=== PATIENT | female | born 1980 | race Caucasian/White ===

== ENCOUNTER → 2017-08-15 18:24 | Outpatient (CLI) | payer OTHER, SELFPAY ==
--- NOTE | 2017-08-15 18:26 | US_ITS ---
STUDY: ABDOMINAL ULTRASOUND - RIGHT UPPER QUADRANT REASON FOR VISIT: Female, 37 years old. EPIGASTRIC PAIN WITH NAUSEA AND VOMITING TECHNIQUE: Ultrasound evaluation of the right upper quadrant was performed with real-time and static price-scale imaging. TECHNICAL QUALITY: Adequate. COMPARISON: None. FINDINGS: Liver: The liver measures 16.5 cm. There is normal echogenicity of the liver. The bile ducts are within normal limits. There is hepatic color flow. The direction of portal flow is hepatopetal. There is no demonstrated mass lesion. Gallbladder: Normal distended gallbladder. The gallbladder wall measures 3 mm. There is a negative sonographic Hall's sign. There is no pericholecystic fluid. There are multiple echogenic structures within the gallbladder, consistent with multiple gallstones. Common Bile Duct (C.B.D.): The common bile duct measures 6 mm. Pancreas: Normal size of the head, body of the pancreas. There is normal echogenicity of the pancreas. There is no demonstrated pancreatic mass or cyst. Tail is poorly seen. Right Kidney: Normal size of the right kidney. The right kidney measures 12x5x5 cm. Normal renal cortex. The right cortex measures 1.6 cm. There is no demonstrated renal mass or cyst. There is no right hydronephrosis. US/Abdomen Limited IMPRESSION: There are multiple echogenic structures within the gallbladder, consistent with multiple gallstones. Electronically Signed: Edi Moraes MD at 20:51 EDT , Service support ,
== END ==
PROVIDERS: Family Provider Family Medicine; PCP Family Medicine; Visit Provider Family Medicine
DX: R10.13 Epigastric pain (principal)
CPT/HCPCS: 76705

== ENCOUNTER 2017-09-19 08:47 | Day surgery (SDC) | payer OTHER, SELFPAY ==
[2017-09-12 20:06] LABS: Hematocrit 40.9 % (37-47); Hemoglobin 13.1 g/dl (12.0-15.0); Mean Corpuscular Volume 90.7 fL (81-99); Mean Platelet Vol. 9.3 fl (6.2-12.0); Platelet Count 271 K/mm3 (150-450); RBC Distribution Width CV 14.1 % (11.6-14.6); RBC Distribution Width SD 46.3 fl (35.1-43.9); Red Blood Count 4.51 M/mm3 (4.2-5.4); Scan Indicated on CBC? Y/N NO; White Blood Count 8.5 K/mm3 (4.4-11.0)
[2017-09-12 20:29] LABS: Anion Gap 6 (5-15); BUN 10 mg/dL (7-18); BUN/Creat Ratio 13.3 RATIO (10-20); Calcium,Total 8.6 mg/dL (8.5-10.1); Chloride 107 mmol/L (98-107); Creatinine, Serum 0.75 mg/dL (0.55-1.02); EST Glomerular Filtration Rate 92 mL/min (>60); Est Glom Filt Rate - Afr Amer 112 mL/min (>60); Glucose 93 mg/dL (74-106); Potassium 3.7 mmol/L (3.5-5.1); Sodium Level 137 mmol/L (136-145)
[2017-09-12 20:35] LABS: Pregnancy, Serum, hCG Quali. NEGATIVE Negative (0-9 Nonpreg)
[2017-09-19] VITALS (7 sets, daily range): BP systolic 123–142; BP diastolic 72–89; PULSE 70–104; RESP 16–18; TEMP 36.2–37.1; O2SAT 93–99; BMI 39.9
--- NOTE | 2017-09-19 | GALL_PTH ---
PATIENT: ONESIMO LEON LOC: [facility] [place] U#:[id number] AGE/SX: 37/F ROOM: RE09/19/[address]: Dr. Zachary Mcguire MD : 1980 BED: DIS: 09/19/2017 SPEC #: [id number] RECD: 09/19/17 14:11 STATUS: TEODORA BHUMI #: [id number] KEKE: 09/19/17 00:[address]: Zachary Mcguire DEPT: SURGICAL PATHOLOGY RECD BY: Jose Law ENTERED: 09/19/17 14:11 SP TYPE: DIMAS GUTIERREZ DR: MD Dr. Gilbert Watt MD Tissues: Gallbladder, NOS Procedures: Surgery Specimen Level III HEADER OPERATION: Laparoscopic cholecystectomy with intraoperative cholangiograph PRE-OP DIAGNOSIS: Chronic cholecystitis with calculus TISSUE SUBMITTED: Gallbladder MICROSCOPIC DIAGNOSIS Gallbladder: Chronic cholecystitis, cholelithiasis and cholesterolosis. SJ:autumn 09/20/17 MICROSCOPIC DESCRIPTION Slides are reviewed. GROSS DESCRIPTION Received is one container labeled with the patient's name and designated gallbladder. The specimen consists of a gallbladder measuring 8 cm in length and 3 cm in diameter. The external surface is pink-barker, smooth and glistening for the most part. Focally it is granular, hemorrhagic and contains cautery artifact. The gallbladder contains green-yellow mucoid bile and multiple mulberry stones and stone fragments, yellowish in color, and measuring in aggregate 5 x 4 x 1 cm and 0.1 to 1 cm in greatest dimension. Some of the stones are present in the cystic duct. The mucosa is bile-stained and without any mass lesions. The gallbladder wall measures up to 0.2 cm in thickness. The mucosa also shows several yellowish streaks consistent with cholesterolosis. Barrel Cutter sections from the gallbladder and the cystic duct are submitted in one cassette. / CHAVEZ:uatumn 09/19/17 TC:3 CPT: 14809
[2017-09-19] MEDS: Cefazolin 2 GM in 0.9% Normal Saline 100 ML IV (10:27)
--- NOTE | 2017-09-19 10:28 | PCM.DC.GS ---
Discharge Diet: Light diet - advance as tolerated - if you have questions about your diet instructions, please talk to you doctor. Discharge Activity: May Not Drive - for 1 week or while taking narcotic pain medicine. May shower in (days): 1 Lifting Restrictions: 10 pounds Call your doctor if your incision/area has: Continuous Slow Oozing, Sudden Increased Bleeding, Increased Pain/ Swelling, Increased Redness, Foul Smelling Discharge Call your doctor if you observe: Fever of 101 or Higher Suture Line Care: Avoid Pulling/Pushing, Avoid Pinching/Bending Additional Dressing/Incision Instructions:: Change or remove dressing in 4 days. Leave steri-strips in place for 1 week. Allergies/Adverse Reactions: Allergies No Known Allergies Allergy (Verified 09/12/17 09:13) Medications to take at Discharge levothyroxine 50 mcg capsule 50 mcg PO QDAY 09/05/17 venlafaxine ER 75 mg capsule,extended release 24 hr 150 mg PO DAILY cap 09/05/17 Hydrocodone Bitart/Apap 5-325 [[place] 5MG-325MG] 1 tablet PO Q6H PRN PRN 3 Days #10 tablet 09/19/17 The following prescriptions were given: Hydrocodone Bitart/Apap 5-325 [[place] 5MG-325MG] 1 tablet PO Q6H PRN PRN 3 Days #10 tablet PRN Reason: Pain Primary Care Physician: Gilbert Sol [Primary Care Provider] - Please Follow Up With: Zachary Mcguire MD - [phone] When: Call to make an appointment to be seen in about 10 days.
--- NOTE | 2017-09-19 10:48 | RAD_ITS ---
STUDY: INTRAOPERATIVE CHOLANGIOGRAM. REASON FOR EXAM: Female, 37 years old. Laparoscopic cholecystectomy. FLUOROSCOPY TIME (if supplied): (34.6 seconds) minutes/seconds TECHNIQUE: An intraoperative cholangiogram was performed by the surgeon. Imaging was submitted. COMPARISON: None. FINDINGS: The visualized intrahepatic biliary ducts are unremarkable. The common bile duct is unremarkable. No intraluminal filling defect is seen. There is free flow of contrast into the duodenum. RAD/Cholangiogram/ O R,Initial IMPRESSION: Unremarkable intraoperative cholangiogram. Electronically Signed: Jaison Alejandro MD at 13:49 EDT Tel [phone], Service support ,
--- NOTE | 2017-09-19 11:51 | PCM.OPRPT ---
Problem List (1) Chronic cholecystitis with calculus Status: Acute Report of Operation Date of Procedure: 09/19/17 Pre-Operative Diagnosis: Chronic cholecystitis cholelithiasis Post-Operative Diagnosis: Same Surgery/Procedure Performed:: Laparoscopic cholecystectomy with cholangiography Description of Surgical Findings:: Timeout informed consent was obtained. 37-year-old female taken out from. She was placed supine on the table. She underwent general endotracheal intubation anesthesia. Ancef 2 g given intravenously. The abdomen was sterilely prepped and draped. 0.5% Marcaine was used as a local anesthetic. A total of 30 cc was used. Skin sites were pre-anesthetized. A vertical infraumbilical incision was created. Holding sutures of 0 Vicryl placed. Saline drop test performed. The abdomen was insufflated with CO2 to to a pressure of 12 mmHg pressure. Luz Elena trocar inserted 10 laps inserted no evidence any trocar injuries under conization five-minute ports were placed in the epigastric mid abdomen right upper quadrant. The gallbladder had omentum that was completely obstructing view to it. This omentum had to be taken down off the gallbladder with a combination of sharp and blunt dissection. Electrocautery was used where indicated. Hemoclips were used for indicated. This allowed for elevation of the liver. Then tedious dissection was performed the infundibular area. The patient's body habitus made it difficult to gain access to the left side of the gallbladder I stayed well up on the gallbladder incised the peritoneum used Hem-o-graciela clips and electrocautery for hemostasis finally elected to do a modified dome down approach. About the mid gallbladder was able to dissect around posteriorly and open up a window superior to the portal area. I could then work my way inferiorly. The cystic artery was identified and was clipped proximally and distally prior to the incident skin yet. I could then clearly identify the cystic duct. Hemoclip was placed on the sixth duct incision made in the cystic duct through a 14-gauge Angiocath the cholangiogram catheter was inserted fluoroscopically controlled plan transfer obtained. The arrangement cath was not well seated in the cystic duct so there was some extravasation at that site however there was good filling of the common bile duct that was hanging up at the ampulla but it finally went through I did not see any filling defects. Client Dane catheter was removed and 2 Hem-o-graciela clips were placed on the cystic duct stump prior to transecting it. The gallbladder was then tediously dissected free from the liver bed complete hemostasis was intact there was absolutely no stones spillage. The gallbladder was placed in retrieval bag the right upper quadrant again was irrigated and aspirated to further assist with hemostasis a piece of fibrillar was placed in the liver bed. Hemostasis was nicely intact. The gallbladder exited the umbilicus with slight fascial enlargement. Then the fascial defect the umbilicus approximated with a grainy needle in a wrvpgg-jx-ehcgz suture of 0 Vicryl. The abdomen was allowed to deflate of the CO2. Skin edges approximated up to 4 Monocryl subdermal stitches. Steri-Strips Telfa and OpSite dressings applied. Sponge and instrument and needle counts were reported to the surgeon be correct. Blood loss was minimal. Specimens none. Drains none. Blood loss minimal. Zachary Mcguire M.D., F.A.C.S. Type of Anesthesia:: General Anesthesiologist: Rachell Rowe
[2017-09-19] MEDS: Bupivacaine Mpf 0.5% 30 ML VIAL (11:53)
== END 2017-09-19 15:19 | disposition home or self-care (01) ==
LOC: SDC 08:48 → AC 08:48
PROVIDERS: Family Provider Family Medicine; PCP Family Medicine; Visit Provider Surgery
PROC: (CPT 47610; principal; 2017-09-19 10:45)
DX: K80.10 Calculus of gallbladder with chronic cholecystitis without obstruction (principal); E03.9 Hypothyroidism, unspecified; J45.909 Unspecified asthma, uncomplicated; F32.9 Major depressive disorder, single episode, unspecified; Z79.899 Other long term (current) drug therapy
CPT/HCPCS: 47563; 36415; 74300; 76000; 80048; 84443; 84703; 85027; 88304; J7120; J2405

== ENCOUNTER → 2017-11-02 13:16 | Outpatient (CLI) | payer OTHER, SELFPAY ==
[2017-11-02 14:04] LABS: Mucous, Urine 0 SEEN /hpf (<or=2+); Red Blood Cells-Urine 0 SEEN /hpf (0-5)
[2017-11-02 14:58] LABS: Color, Urine Yellow (Yellow); Glucose, Dipstick Normal (Normal); Ketone-Dipstick Negative (Negative); Leukocyte Esterase-Dipstick 25 /ul (Negative); Nitrite-Dipstick Negative (Negative); Occult Blood-Urine 25 /ul (Negative); Protein-Dipstick Negative (Negative); Urine Bilirubin Dipstick Negative (Negative); Urine Clarity Clear (Clear); Urine Urobilinogen Normal (Normal)
[2017-11-02 15:25] LABS: Bacteria RARE /hpf (None Seen); Squamous Epithelial Cells - UA 0-5 SEEN /hpf (5-10); White Blood Cells 0-5 SEEN /hpf (0-5)
== END ==
PROVIDERS: Family Provider Family Medicine; PCP Family Medicine; Visit Provider Physician Assistant Surgical
DX: R10.9 Unspecified abdominal pain (principal)
CPT/HCPCS: 81001; 87086

== ENCOUNTER → 2017-11-27 18:44 | Outpatient (CLI) | payer OTHER, SELFPAY | PROVIDERS: Family Provider Family Medicine; PCP Family Medicine; Visit Provider Urology | DX: R31.9 Hematuria, unspecified (principal); R10.9 Unspecified abdominal pain | CPT/HCPCS: 74176 ==

== ENCOUNTER → 2018-11-11 18:03 | Outpatient (CLI) | payer OTHER, SELFPAY ==
[2017-11-02 06:59] VITALS: BMI 39.8
[2018-11-11 19:04] LABS: Thyroid Stim Hormone (TSH) 2.06 uIU/mL (0.358-3.74)
== END ==
PROVIDERS: Family Provider Family Medicine; PCP Family Medicine; Visit Provider Family Medicine
DX: E03.4 Atrophy of thyroid (acquired) (principal)
CPT/HCPCS: 36415; 84443

== ENCOUNTER → 2019-12-24 11:31 | Outpatient (CLI) | payer OTHER, SELFPAY ==
[2019-12-24 13:27] LABS: Progesterone Level 0.46 ng/mL (See Comment)
[2019-12-24 13:31] LABS: hCG Titer Quant., Serum < 1 mIU/mL (1-3)
[2019-12-24 13:32] LABS: Thyroid Stim Hormone (TSH) 2.59 uIU/mL (0.358-3.74)
== END ==
PROVIDERS: PCP Family Medicine; Referring Provider Obstetrics & Gynecology; Visit Provider Obstetrics & Gynecology
DX: Z30.430 Encounter for insertion of intrauterine contraceptive device (principal); E03.4 Atrophy of thyroid (acquired)
CPT/HCPCS: 36415; 84144; 84443; 84702

== ENCOUNTER → 2020-12-31 11:06 | Outpatient (CLI) | payer OTHER, SELFPAY ==
[2020-12-31 11:35] LABS: Absolute Lymphocyte Count 1.92 X10^3/uL (0.83-4.51); Basophil# 0.05 X10^3/uL; Basophil% 0.6 % (0-1); Eosinophil# 0.25 X10^3/uL; Eosinophils% 2.8 % (0-5); Hemoglobin 12.9 g/dL (12.0-15.0); Lymphocyte # 1.92 X10^3/ul (0.83-4.51); Lymphocyte % 21.6 % (19-41); Mean Corp Hgb Conc 33.1 g/dL (32-36); Mean Corpuscular Hgb 29.4 pg (27.0-32.0); Mean Corpuscular Volume 88.8 fL (81-99); Mean Platelet Vol. 9.1 fl (6.2-12.0); Monocyte% 6.7 % (0-10); NRBC Flagged by Analyzer 0 % (0-5); Neutrophil # 6.04 X10^3/uL (2.7-7.7); Platelet Count 308 K/mm3 (150-450); RBC Distribution Width CV 13.8 % (11.6-14.6); RBC Distribution Width SD 45.4 fl (35.1-43.9); Red Blood Count 4.39 M/mm3 (4.2-5.4); White Blood Count 8.9 K/mm3 (4.4-11.0)
[2020-12-31 12:13] LABS: ALB/GLOB Ratio 0.8 RATIO (0.9-2.4); AST(SGOT) 12 U/L (15-37); Alanine Aminotransfer ALT/SGPT 17 U/L (13-56); Albumin, Serum 3.4 g/dL (3.2-5.0); Alkaline Phosphatase 102 U/L (45-117); Anion Gap 5 (5-15); BUN 12 mg/dL (7-18); BUN/Creat Ratio 18.4 RATIO (10-20); Calcium,Total 8.2 mg/dL (8.5-10.1); Chloride 109 mmol/L (98-107); Cholesterol 165 mg/dL (200); Creatinine, Serum 0.65 mg/dL (0.55-1.02); EST Glomerular Filtration Rate 106 mL/min (>60); Est Glom Filt Rate - Afr Amer 129 mL/min (>60); Globulin 4.1 g/dL (2.2-4.2); Glucose 99 mg/dL (74-106); High Density Lipoprotein 42 mg/dL; Protein, Total 7.5 g/dL (6.4-8.2); Sodium Level 139 mmol/L (136-145); Thyroid Stim Hormone (TSH) 1.87 uIU/mL (0.358-3.74); Triglycerides 73 mg/dL; Very Low Density Lipoprotein 15 mg/dL (5-40)
== END ==
PROVIDERS: PCP Family Medicine; Referring Provider Family Medicine; Visit Provider Family Medicine
DX: E03.4 Atrophy of thyroid (acquired) (principal)
CPT/HCPCS: 36415; 80053; 80061; 84443; 85025

== ENCOUNTER 2021-05-10 13:29 | Outpatient (CLI) | payer OTHER, SELFPAY ==
--- NOTE | 2021-05-10 13:32 | BI_ITS ---
MAMMOGRAPHY - BILATERAL SCREENING REASON FOR EXAM: Female, 41 years old. Routine annual screening examination. PERTINENT HISTORY: Grandmothers with breast cancer. TECHNIQUE: Digital bilateral breast sienna (3D mammographic acquisition) in the CC and MLO projections. 2-D mediolateral oblique (MLO) and craniocaudad (CC) views of both breasts were obtained. CAD: Full Field Digital Mammography with Computer Added Detection was performed. COMPARISON: None. Baseline examination. FINDINGS: Breast Composition: The breasts are heterogeneously dense, which may obscure small masses. There are no dominant masses or suspicious calcifications. Benign-appearing right axillary lymph nodes. No other significant abnormalities are identified. BI/SCRN MAMM (CAD)W/SIENNA BILAT IMPRESSION: Negative screening mammogram. Yearly followup mammogram recommended. (A) ASSESSMENT CATEGORY: BIRADS Category 2: Benign. A letter regarding these results will be sent to the patient by the facility within 30 days. Approximately 10% of breast cancers are not detected by mammography. A normal mammogram should not delay biopsy of a clinically suspicious abnormality. [id number] Electronically Signed: Jiason Alejandro MD at 14:23 EST ,
== END 2021-05-10 23:59 | disposition home or self-care (01) ==
LOC: OPBI 13:30
PROVIDERS: PCP Family Medicine; Referring Provider Obstetrics & Gynecology; Visit Provider Obstetrics & Gynecology
DX: Z12.31 Encounter for screening mammogram for malignant neoplasm of breast (principal); Z80.3 Family history of malignant neoplasm of breast
CPT/HCPCS: 77063; 77067

== ENCOUNTER → 2021-12-09 | Outpatient (CLI) | payer OTHER, SELFPAY ==
[2021-12-09 08:49] LABS: Absolute Neutrophil Count 6.7 X10^3/uL (2.0-7.7); Basophil# 0.04 X10^3/uL; Basophil% 0.4 % (0-1); Eosinophil# 0.32 X10^3/uL; Eosinophils% 3.2 % (0-5); Hemoglobin 12.9 g/dL (12.0-15.0); Lymphocyte % 23.1 % (19-41); Mean Corp Hgb Conc 31.5 g/dL (32-36); Mean Corpuscular Hgb 29.3 pg (27.0-32.0); Mean Corpuscular Volume 93.2 fL (81-99); Mean Platelet Vol. 9.5 fl (6.2-12.0); Monocyte# 0.62 X10^3/uL; Monocyte% 6.2 % (0-10); NRBC Flagged by Analyzer 0 % (0-5); Neutrophil # 6.66 X10^3/uL (2.7-7.7); Neutrophil % 66.8 % (47-70); Platelet Count 310 K/mm3 (150-450); RBC Distribution Width CV 13.7 % (11.6-14.6)
[2021-12-09 09:42] LABS: ALB/GLOB Ratio 0.9 RATIO (0.9-2.4); AST(SGOT) 13 U/L (15-37); Alanine Aminotransfer ALT/SGPT 17 U/L (13-56); Albumin, Serum 3.4 g/dL (3.2-5.0); Alkaline Phosphatase 98 U/L (45-117); Anion Gap 8 (5-15); BUN 17 mg/dL (7-18); BUN/Creat Ratio 21.5 RATIO (10-20); Calcium,Total 8.4 mg/dL (8.5-10.1); Chloride 106 mmol/L (98-107); Cholesterol 171 mg/dL (200); Creatinine, Serum 0.79 mg/dL (0.55-1.02); EST Glomerular Filtration Rate 85 mL/min (>60); Est Glom Filt Rate - Afr Amer 103 mL/min (>60); Globulin 3.9 g/dL (2.2-4.2); Glucose 107 mg/dL (74-106); High Density Lipoprotein 41 mg/dL; Potassium 3.5 mmol/L (3.5-5.1); Protein, Total 7.3 g/dL (6.4-8.2); Sodium Level 140 mmol/L (136-145); Thyroid Stim Hormone (TSH) 4.27 uIU/mL (0.358-3.74); Triglycerides 103 mg/dL; Very Low Density Lipoprotein 21 mg/dL (5-40)
== END | disposition home or self-care (01) ==
LOC: LAB 07:53
PROVIDERS: PCP Family Medicine; Referring Provider Family Medicine; Visit Provider Family Medicine
DX: Z00.00 Encounter for general adult medical examination without abnormal findings (principal)
CPT/HCPCS: 36415; 80053; 80061; 84443; 85025

== ENCOUNTER → 2022-02-14 | Outpatient (CLI) | payer OTHER, SELFPAY ==
[2022-02-14 17:11] LABS: Thyroid Stim Hormone (TSH) 2.18 uIU/mL (0.358-3.74)
== END | disposition home or self-care (01) ==
LOC: LAB 15:46
PROVIDERS: PCP Family Medicine; Visit Provider Family Medicine
DX: E03.4 Atrophy of thyroid (acquired) (principal)
CPT/HCPCS: 36415; 84443

== ENCOUNTER → 2023-04-17 | Outpatient (CLI) | payer OTHER, SELFPAY ==
--- NOTE | 2023-04-17 17:24 | US_ITS ---
STUDY: THYROID ULTRASOUND REASON FOR EXAM: Female, 43 years old. Palpably enlarged thyroid TECHNIQUE: Ultrasound evaluation of the thyroid was performed with real-time and static price-scale imaging. COMPARISON: None. FINDINGS: RIGHT LOBE: The right lobe of the thyroid gland measures 5.6 x 2.1 x 2.2 cm. There is a heterogeneous echotexture. There is a solid well-defined hypoechoic 1.6 x 1.2 x 0.7 cm nodule This nodule is solid or almost completely solid, hypoechoic, grvdz-dahp-jfgz, smoothly marginated and contains no echogenic foci. TI-RADS points: 4. TI-RADS category: TR4. This nodule is moderately suspicious. Recommend FNA evaluation. LEFT LOBE: The left lobe of the thyroid gland measures 5.0 x 1.9 x 2.2 cm. There is a heterogeneous echotexture. There are no demonstrated solid, cystic or complex lesions. ISTHMUS: The isthmus measures 4 mm. The regional lymph nodes are normal. US/Thyroid IMPRESSION: Enlarged heterogeneous thyroid gland with suspicious 1.6 cm hypoechoic nodule in the left thyroid lobe. Categorization and follow-up as listed above Electronically Signed: Zhen Simmons MD at 18:13 EST ,
--- OUTSIDE RECORDS SUMMARY | 2023-04-17 17:24 | XMS RPT_ITS | CCD ---
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 Name Role Phone Noris Davidson DC Unavailable Dionne Matamoros Unavailable Unavailable Noris Davidson DC Unavailable Medications Completed/Discontinued Medications Medication Drug Class(es) Dates Sig (Normalized) Sig (Original) levothyroxine sodium 0.05 mg oral tablet (12 sources) l-Thyroxine Start: 10-31-2016 LEVO-T 50 MCG TABS LEVOTHYROXINE SODIUM [id number] Noris Davidson DC Problems Active Problems Problem Classification Problem Date Documented Da te Episodic/Chronic Asthma (12 sources) Asthma; Translations: [Unspecified asthma, uncomplicated] Onset: 10-31-2016 10-31-2016 Chronic Conditions associated with dizziness or vertigo (12 sources) Meniere's disease; Translations: [Meniere's disease, unspecified ear] Onset: 10-31-2016 10-31-2016 Chronic Other screening for suspected conditions (not mental disorders or infectious disease) (1 source) No current problems or disability 10-31-2016 Thyroid disorders (12 sources) Hypothyroidism; Translations: [Hypothyroidism, unspecified] Onset: 10-31-2016 10-31-2016 Chronic Past or Other Problems Problem Classification Problem Date Documented Da te Episodic/Chronic Other bone disease and musculoskeletal deformities (20 sources) Segmental and somatic dysfunction; Translations: [Segmental and somatic dysfunction of lumbar region] Onset: 10-31-2016 10-31-2016 Episodic Urinary tract infections (12 sources) Recurrent urinary tract infection; Translations: [Urinary tract infection, site not specified] Onset: 10-31-2016 10-31-2016 Episodic Results Test Name Value Interpretation Reference Range Facil ity Vital Signs Date Time Vital Sign Value Performing Clinician Faci lity 10-31-2016 13:47-1443 BMI (Body Mass Index) 35.73 kg/m2 Noris Dossi DC [facility] Work Phone: 10-31-2016 13:47040 Height 172.72 cm Noris Dossi DC [facility] Work Phone: 10-31-2016 [phone] Pulse (Heart Rate) 82 /min Noris Dossi DC [facility] Work Phone: 10-31-2016 13:47-040 Weight 106.6 kg Noris Dossi DC [facility] Work Phone: Procedures Date Procedure Procedure Detail Performing Clinician Start: 01-18-2017 End: 01-18-2017 Appl modality 1/> areas elec stimj unattended Noris B Dossi DC Work Phone: Start: 01-18-2017 End: 01-18-2017 Appl modality 1/> areas traction mechanical Noris B Dossi DC Work Phone: Start: 01-18-2017 End: 01-18-2017 Chiropractic manipulative tx spinal 3-4 regions Noris B Dossi DC Work Phone: Start: 11-22-2016 End: 11-22-2016 Appl modality 1/> areas traction mechanical Noris B Dossi DC Work Phone: Start: 11-22-2016 End: 11-22-2016 Chiropractic manipulative tx spinal 3-4 regions Noris B Dossi DC Work Phone: Start: 11-22-2016 End: 11-22-2016 Chiropractic manipulation Noris B Dossi DC Work Phone: Start: 11-22-2016 End: 11-22-2016 Mechanical traction therapy Noris B Dossi DC Work Phone: Start: 11-15-2016 End: 11-15-2016 Appl modality 1/> areas elec stimj unattended Noris B Dossi DC Work Phone: Start: 11-15-2016 End: 11-15-2016 Appl modality 1/> areas traction mechanical Noris B Dossi DC Work Phone: Start: 11-15-2016 End: 11-15-2016 Chiropractic manipulative tx spinal 3-4 regions Noris B Dossi DC Work Phone: Start: 11-15-2016 End: 11-15-2016 Chiropractic manipulation Noris B Dossi DC Work Phone: Start: 11-15-2016 End: 11-15-2016 Electric stimulation therapy Noris B Dossi DC Work Phone: Start: 11-15-2016 End: 11-15-2016 Mechanical traction therapy Noris B Dossi DC Work Phone: Start: 11-09-2016 End: 11-09-2016 Appl modality 1/> areas traction mechanical Noris B Dossi DC Work Phone: Start: 11-09-2016 End: 11-09-2016 Chiropractic manipulative tx spinal 3-4 regions Noris B Dossi DC Work Phone: Start: 11-09-2016 End: 11-09-2016 Chiropractic manipulation Noris B Dossi DC Work Phone: Start: 11-09-2016 End: 11-09-2016 Mechanical traction therapy Noris B Dossi DC Work Phone: Start: 11-07-2016 End: 11-07-2016 Appl modality 1/> areas elec stimj unattended Noris B Dossi DC Work Phone: Start: 11-07-2016 End: 11-07-2016 Appl modality 1/> areas traction mechanical Noris B Dossi DC Work Phone: Start: 11-07-2016 End: 11-07-2016 Chiropractic manipulative tx spinal 3-4 regions Noris B Dossi DC Work Phone: Start: 11-07-2016 End: 11-07-2016 Electric stimulation therapy Noris B Dossi DC Work Phone: Start: 11-07-2016 End: 11-07-2016 Mechanical traction therapy Noris B Dossi DC Work Phone: Start: 11-06-2016 End: 11-07-2016 Chiropractic manipulation Noris B Dossi DC Work Phone: Start: 11-06-2016 End: 11-06-2016 Chiropractic manipulation Noris B Dossi DC Work Phone: Start: 11-01-2016 End: 11-02-2016 Appl modality 1/> areas elec stimj unattended Noris B Dossi DC Work Phone: Start: 11-01-2016 End: 11-02-2016 Appl modality 1/> areas traction mechanical Noris B Dossi DC Work Phone: Start: 11-01-2016 End: 11-02-2016 Chiropractic manipulative tx spinal 3-4 regions Noris B Dossi DC Work Phone: Start: 11-01-2016 End: 11-02-2016 Chiropractic manipulation Noris B Dossi DC Work Phone: Start: 11-01-2016 End: 11-02-2016 Mechanical traction therapy Noris B Dossi DC Work Phone: Start: 10-31-2016 End: 11-02-2016 Electric stimulation therapy Noris B Dossi DC Work Phone: Start: 10-31-2016 End: 10-31-2016 Radex spine cervical 2 or 3 views Noris B Dossi DC Work Phone: Start: 10-31-2016 End: 10-31-2016 Dietary management education, guidance, and counseling Noris Dossi DC Start: 10-31-2016 End: 10-31-2016 Electric stimulation therapy Noris B Dossi DC Work Phone: Start: 10-31-2016 End: 10-31-2016 X-ray exam of neck spine Noris Jenny Whitesi D C Work Phone: Plan of Treatment Date Care Activity Detail Author Start: 01-18-2017 End: 01-18-2017 Appointment Appointment [facility] Work Phone: Start: 11-22-2016 End: 11-22-2016 Follow up Appt 1x/week Follow up Appt 1x/week [facility] Work Phone: Start: 11-22-2016 End: 11-22-2016 Appointment Appointment [facility] Work Phone: Start: 11-22-2016 End: 11-22-2016 Follow up Appt 1x/week Follow up Appt 1x/week [facility] Work Phone: Start: 11-21-2016 End: 11-21-2016 Appointment Appointment [facility] Work Phone: Start: 11-15-2016 End: 11-15-2016 Follow up Appt 1x/week Follow up Appt 1x/week [facility] Work Phone: Start: 11-15-2016 End: 11-15-2016 Appointment Appointment [facility] Work Phone: Start: 11-15-2016 End: 11-15-2016 Follow up Appt 1x/week Follow up Appt 1x/week [facility] Work Phone: Start: 11-09-2016 End: 11-09-2016 Appointment Appointment [facility] Work Phone: Start: 11-09-2016 End: 11-09-2016 Follow up Appt 3x/week Follow up Appt 3x/week [facility] Work Phone: Start: 11-09-2016 End: 11-09-2016 Follow up Appt 3x/week Follow up Appt 3x/week [facility] Work Phone: Start: 11-07-2016 End: 11-07-2016 Follow up Appt 3x/week Follow up Appt 3x/week [facility] Work Phone: Start: 11-07-2016 End: 11-07-2016 Appointment Appointment [facility] Work Phone: Start: 11-06-2016 End: 11-07-2016 Follow up Appt 3x/week Follow up Appt 3x/week [facility] Work Phone: Start: 11-06-2016 End: 11-06-2016 Appointment Appointment [facility] Work Phone: Start: 11-06-2016 End: 11-06-2016 Follow up Appt 3x/week Follow up Appt 3x/week [facility] Work Phone: Start: 11-01-2016 End: 11-02-2016 Follow up Appt 3x/week Follow up Appt 3x/week [facility] Work Phone: Start: 11-01-2016 End: 11-01-2016 Appointment Appointment [facility] Work Phone: Start: 11-01-2016 End: 11-02-2016 Follow up Appt 3x/week Follow up Appt 3x/week [facility] Work Phone: Start: 10-31-2016 End: 10-31-2016 Appointment Appointment [facility] Work Phone: Additional Source Comments FOR RECORDS PERTAINING TO PATIENTS WHO ARE OR HAVE BEEN ENROLLED IN A CHEMICAL DEPENDENCY/SUBSTANCEABUSE PROGRAM, SOME INFORMATION MAY BE OMITTED. This clinical summary was aggregated from multiple sources. Caution should be exercised in using it in the provision of clinical care. This summary normalizes information from multiple sources, and as a consequence, information in this document may materially change the coding, format and clinical context of patient data. In addition, data may be omitted in some cases. CLINICAL DECISIONS SHOULD BE BASED ON THE PRIMARY CLINICAL RECORDS. [employer] [facility]. provides no warranty or guarantee of the accuracy or completeness of information in this document.
== END | disposition home or self-care (01) ==
LOC: US 17:21
PROVIDERS: PCP Internal Medicine; Referring Provider Internal Medicine; Visit Provider Internal Medicine
DX: E04.9 Nontoxic goiter, unspecified (principal)
CPT/HCPCS: 76536

== ENCOUNTER → 2023-04-18 | Outpatient (CLI) | payer OTHER, SELFPAY ==
[2023-04-18 17:03] LABS: Absolute Lymphocyte Count 1.88 X10^3/uL (0.83-4.51); Basophil# 0.04 X10^3/uL; Basophil% 0.5 % (0-1); Eosinophil# 0.28 X10^3/uL; Eosinophils% 3.6 % (0-5); Hematocrit 39.5 % (37-47); Hemoglobin 13.1 g/dL (12.0-15.0); Lymphocyte # 1.88 X10^3/ul (0.83-4.51); Lymphocyte % 24.2 % (19-41); Mean Corp Hgb Conc 33.2 g/dL (32-36); Mean Corpuscular Hgb 29.8 pg (27.0-32.0); Monocyte# 0.54 X10^3/uL; Monocyte% 6.9 % (0-10); NRBC Flagged by Analyzer 0 % (0-5); Neutrophil # 5.02 X10^3/uL (2.7-7.7); Neutrophil % 64.5 % (47-70); Platelet Count 321 K/mm3 (150-450); RBC Distribution Width CV 13.4 % (11.6-14.6); RBC Distribution Width SD 44.4 fl (35.1-43.9); Red Blood Count 4.39 M/mm3 (4.2-5.4); White Blood Count 7.8 K/mm3 (4.4-11.0)
--- OUTSIDE RECORDS SUMMARY | 2023-04-18 17:31 | XMS RPT_ITS | CCD ---
Author Name Unknown Address [address] [place] [address] Organization [facility] Care Team Providers Care Aviation Metalsmith Name Role Phone Noris Davidson DC Unavailable Dionne Matamoros Unavailable Unavailable Noris Davidson DC Unavailable Medications Completed/Discontinued Medications Medication Drug Class(es) Dates Sig (Normalized) Sig (Original) levothyroxine sodium 0.05 mg oral tablet (12 sources) l-Thyroxine Start: 10-31-2016 LEVO-T 50 MCG TABS LEVOTHYROXINE SODIUM [id number] Noris Davidson DC Problems Active Problems Problem [...] Sign Value Performing Clinician Faci lity 10-31-2016 13:47-0223 BMI (Body Mass Index) 35.73 kg/m2 Noris Dossi DC [facility] Work Phone: 10-31-2016 13:47040 Height 172.72 cm Noris Dossi DC [facility] Work Phone: [phone]:[phone] Pulse (Heart Rate) 82 /min Noris Dossi DC [facility] Work Phone: 10-31-2016 13:47-0406 Weight 106.6 kg Noris Dossi DC [facility] Work Phone: Procedures Date Procedure Procedure [...] Author Start: 01-18-2017 End: 01-18-2017 Appointment Appointment [facility] Work Phone: Start: 11-22-2016 End: 11-22-2016 [...] BE BASED ON THE PRIMARY CLINICAL RECORDS. [employer] [facility]. provides no warranty or guarantee of the accuracy or completeness of information in this document.
[2023-04-18 17:54] LABS: Vitamin D,25 Hydroxy 18.4 ng/mL
[2023-04-18 18:00] LABS: ALB/GLOB Ratio 0.8 RATIO (0.9-2.4); AST(SGOT) 9 U/L (15-37); Alanine Aminotransfer ALT/SGPT 16 U/L (13-56); Albumin, Serum 3.3 g/dL (3.2-5.0); Alkaline Phosphatase 111 U/L (45-117); Anion Gap 1 (5-15); BUN 11 mg/dL (7-18); BUN/Creat Ratio 14.1 RATIO (10-20); Calcium,Total 8.6 mg/dL (8.5-10.1); Chloride 113 mmol/L (98-107); Cholesterol 175 mg/dL (200); Creatinine, Serum 0.78 mg/dL (0.55-1.02); EST Glomerular Filtration Rate 86 mL/min (>60); Est Glom Filt Rate - Afr Amer 104 mL/min (>60); Glucose 103 mg/dL (74-106); High Density Lipoprotein 46 mg/dL; Potassium 3.8 mmol/L (3.5-5.1); Protein, Total 7.3 g/dL (6.4-8.2); Sodium Level 140 mmol/L (136-145); Thyroid Stim Hormone (TSH) 1.79 uIU/mL (0.358-3.74); Triglycerides 81 mg/dL; Very Low Density Lipoprotein 16 mg/dL (5-40)
== END | disposition home or self-care (01) ==
LOC: LAB 16:51
PROVIDERS: PCP Internal Medicine; Visit Provider Internal Medicine
DX: Z13.6 Encounter for screening for cardiovascular disorders (principal); E03.9 Hypothyroidism, unspecified; F32.A Depression, unspecified
CPT/HCPCS: 36415; 80053; 80061; 82306; 84443; 85025

== ENCOUNTER → 2023-04-25 | Outpatient (CLI) | payer OTHER, SELFPAY ==
--- NOTE | 2023-04-25 08:28 | BI_ITS ---
MAMMOGRAPHY - BILATERAL SCREENING REASON FOR EXAM: Female, 43 years old. Routine annual screening examination. PERTINENT HISTORY: Grandmothers with breast cancer. TECHNIQUE: Digital bilateral breast sienna (3D mammographic acquisition) in the CC and MLO projections. 2-D mediolateral oblique (MLO) and craniocaudad (CC) views of both breasts were obtained. CAD: Full Field Digital Mammography with Computer Added Detection was performed. COMPARISON: Comparison is made with prior examination of May 10, 2021. FINDINGS: Breast Composition: The breasts are heterogeneously dense, which may obscure small masses. There are no dominant masses or suspicious calcifications. Stable benign-appearing bilateral axillary lymph nodes. No other significant abnormalities are identified. There has been no significant change since the prior study. BI/SCRN MAMM (CAD)W/SIENNA BILAT IMPRESSION: Stable bilateral screening mammogram. Yearly follow-up mammogram recommended. (A) ASSESSMENT CATEGORY: BIRADS Category 2: Benign. A letter regarding these results will be sent to the patient by the facility within 30 days. Approximately 10% of breast cancers are not detected by mammography. A normal mammogram should not delay biopsy of a clinically suspicious abnormality. [id number] Electronically Signed: Jaison Alejandro MD at 17:24 EST ,
--- OUTSIDE RECORDS SUMMARY | 2023-04-25 08:53 | XMS RPT_ITS | CCD ---
Author Name Unknown Address [address] [place] [address] Organization [facility] Care Team Providers Care Electric Clock Mechanic Name Role Phone Noris Davidson DC Unavailable Dionne Matamoros Unavailable Unavailable Noris Davidson DC Unavailable Medications Completed/Discontinued Medications Medication Drug Class(es) Dates Sig (Normalized) Sig (Original) levothyroxine sodium 0.05 mg oral tablet (12 sources) l-Thyroxine Start: 10-31-2016 LEVO-T 50 MCG TABS LEVOTHYROXINE SODIUM [id number] Noris Davidson DC Problems Active Problems Problem [...] Sign Value Performing Clinician Faci lity 10-31-2016 13:47-0693 BMI (Body Mass Index) 35.73 kg/m2 Noris Dossi DC [facility] Work Phone: [phone] Height 172.72 cm Noris Dossi DC [facility] Work Phone: 10-31-2016 [phone] Pulse (Heart Rate) 82 /min Noris Dossi DC [facility] Work Phone: 10-31-2016 13:47-040 Weight 106.6 kg Noris Dossi DC [facility] Work Phone: Procedures Date Procedure Procedure [...] Author Start: 01-18-2017 End: 01-18-2017 Appointment Appointment [facility] Work Phone: Start: 11-22-2016 End: [...] BE BASED ON THE PRIMARY CLINICAL RECORDS. [employer] [facility]. provides no warranty or guarantee of the accuracy or completeness of information in this document.
== END | disposition home or self-care (01) ==
LOC: OPBI 08:28
PROVIDERS: PCP Internal Medicine; Visit Provider Internal Medicine
DX: Z12.31 Encounter for screening mammogram for malignant neoplasm of breast (principal)
CPT/HCPCS: 77063; 77067

== ENCOUNTER → 2023-05-03 | Outpatient (CLI) | payer OTHER, SELFPAY ==
--- NOTE | 2023-05-03 13:30 | FLU_PTH ---
PATHOLOGY RESULTS PATIENT: ONESIMO LEON LOC: [facility] U#:[id number] AGE/SX: 43/F ROOM: RE05/03/[address]: Dr. Jeffery Brar MD : 1980 BED: DIS: 05/03/2023 SPEC #: [id number] RECD: 05/03/23 15:27 STATUS: TEODORA BHUMI #: [id number] KEKE: 05/03/23 13:[address]: Jeffery Brar DEPT: CYTOLOGY RECD BY: Shannan Goldman ENTERED: 05/04/23 08:03 SP TYPE: Fluid OTHR DR: Dr. Doretha Mendoza MD Tissues: Thyroid gland, NOS Thyroid gland, NOS Procedures: Special Stain Group II Surgery Specimen Level IV Cytospin Fluid Cytology Other HEADER OPERATION: Fine needle aspiration right thyroid nodule PRE-OP DIAGNOSIS: Right thyroid nodule TISSUE SUBMITTED: A - Right thyroid nodule fluid, B - Right thyroid nodule x4 slides DIAGNOSIS CYTOLOGY A. Right thyroid nodule fluid, fine needle aspiration (cytospin and cell block): Consistent with chronic lymphocytic (Joy's) thyroiditis in the proper clinical context, Adel Category II. Adequate for evaluation. See comment. B. Right thyroid nodule, fine needle aspiration (smears): Consistent with chronic lymphocytic (Joy's) thyroiditis in the proper clinical context, Adel Category II. Adequate for evaluation. See comment. SJ:selene 05/07/2023 COMMENT A & B. The specimens are cellular and predominantly consists of polymorphous population of the lymphocytes. Correlation with clinical, laboratory and radiologic findings and appropriate follow up are necessary. The Adel System for thyroid diagnostic categorization was used in the evaluation of this case. CYTOLOGY STUDY Slides are reviewed. CYTOLOGY GROSS A - Received is 30 ml of red cloudy fluid labeled with the patient's name and and designated per the requisition as right thyroid nodule. Submitted for cytology preparation including cell block. B - Received are four smears labeled with the patient's name and designated per the requisition as right thyroid nodule. Submitted for staining. / selene 05/04/2023 TC:3 CPT: 52049 x2, 41132
--- OUTSIDE RECORDS SUMMARY | 2023-05-03 16:32 | XMS RPT_ITS | CCD ---
Author Name Unknown Address [address] [place] [address] Organization [facility] Care Team Providers Care School Manager Name Role Phone Noris Davidson DC Unavailable Dionne Matamoros Unavailable Unavailable Noris Davidson DC Unavailable Medications Completed/Discontinued Medications Medication Drug Class(es) Dates Sig (Normalized) Sig (Original) levothyroxine sodium 0.05 mg oral tablet (12 sources) l-Thyroxine Start: 10-31-2016 LEVO-T 50 MCG TABS LEVOTHYROXINE SODIUM [id number] Noris Davidson DC Problems Active Problems Problem [...] Sign Value Performing Clinician Faci lity 10-31-2016 13:47-4181 BMI (Body Mass Index) 35.73 kg/m2 Noris Dossi DC [facility] Work Phone: 10-31-2016 [phone] Height 172.72 cm Noris Dossi DC [facility] Work Phone: 10-31-2016 [phone] Pulse (Heart Rate) 82 /min Noris Dossi DC [facility] Work Phone: 10-31-2016 13:47-0404 Weight 106.6 kg Noris Dossi DC [facility] Work Phone: Procedures Date Procedure Procedure [...] Author Start: 01-18-2017 End: 01-18-2017 Appointment Appointment [facility] Work Phone: Start: 11-22-2016 End: 11-22-2016 [...] BE BASED ON THE PRIMARY CLINICAL RECORDS. [employer] [facility]. provides no warranty or guarantee of the accuracy or completeness of information in this document.
[2023-05-07 18:08] LABS: Thyroglobulin Antibody 667.1 IU/mL (0.0-0.9); Thyroid Peroxidase AB 412 IU/mL (0-34)
== END | disposition home or self-care (01) ==
PROVIDERS: PCP Internal Medicine; Referring Provider Surgery; Visit Provider Surgery
DX: E06.3 Autoimmune thyroiditis (principal)
CPT/HCPCS: 36415; 86376; 86800; 88108; 88161; 88305; 88313

== ENCOUNTER → 2023-09-06 | Outpatient (CLI) | payer OTHER, SELFPAY ==
[2023-09-11 11:09] LABS: HPV APTIMA, High Risk Negative (Negative)
== END | disposition home or self-care (01) ==
LOC: LABSPEC 12:05
PROVIDERS: PCP Internal Medicine; Referring Provider Nurse Practitioner Family; Visit Provider Nurse Practitioner Family
DX: Z12.4 Encounter for screening for malignant neoplasm of cervix (principal); N89.8 Other specified noninflammatory disorders of vagina
CPT/HCPCS: 87070; 87205; 87624; 88175; G0145

== ENCOUNTER → 2023-10-02 | Outpatient (CLI) | payer OTHER, SELFPAY ==
--- NOTE | 2023-10-02 17:30 | US_ITS ---
STUDY: ULTRASOUND OF THE FEMALE PELVIS - COMPLETE REASON FOR EXAM: Female, 43 years old. IUD PLACEMENT LMP: TECHNIQUE: Transabdominal and Transvaginal TECHNICAL QUALITY: Adequate. COMPARISON: None. FINDINGS: The uterus is anteverted and is in a midline position. The uterus measures 9.2 x 6.3 x 4.0 cm. Normal uterine cervix. The endometrium measures 12 mm in thickness, and is hyperechoic. There is no demonstrated endometrial mass. 2.5 cm round isoechoic mass of the left side of the body of the uterus consistent with an intramural fibroid. I.U.D. - The patient does have an I.U.D. The right ovary is visualized. The right ovary measures 3.0 x 2.1 x 1.7 cm. There is no right ovarian cyst or ovarian mass. There is no visualized right adnexal mass or complex lesion. There is normal arterial and normal venous vascularity. The left ovary is visualized. The left ovary measures 2.5 x 2.1 x 1.4 cm. There is no left ovarian cyst or ovarian mass. There is no visualized left adnexal mass or complex lesion. There is normal arterial and normal venous vascularity. There is minimal fluid in the cul-de-sac. The pre void volume of the bladder was 49 ml. The post void volume of the bladder was ml. Polycystic ovary disease: No. US/Pelvic w/ Transvaginal IMPRESSION: 1. Intrauterine device within the endometrial cavity. 2. 2.5 cm intramural fibroid of the left side of the body the uterus. 3. Normal ovaries. Electronically Signed: Bayron Oquendo MD at 12:23 EDT ,
== END | disposition home or self-care (01) ==
PROVIDERS: PCP Internal Medicine; Referring Provider Nurse Practitioner Family; Visit Provider Nurse Practitioner Family
DX: Z30.430 Encounter for insertion of intrauterine contraceptive device (principal)
CPT/HCPCS: 76830; 76856

== ENCOUNTER → 2024-04-28 | Outpatient (CLI) | payer OTHER, SELFPAY ==
--- NOTE | 2024-04-28 15:28 | BI_ITS ---
PROCEDURE: SCRN MAMM (CAD)W/SIENNA BILAT REASON FOR EXAM: F, Age 44 y/o, grandmothers with breast cancer. Routine mammographic follow-up. TECHNIQUE: Bilateral screening digital breast tomosynthesis with 2D and 3D images. Computer aided detection. COMPARISON: Prior exam(s) dating back to May 20, 2021. FINDINGS: The breasts are heterogeneously dense which may obscure small masses. Stable fat containing bilateral axillary lymph nodes. No suspicious masses, areas of developing architectural distortion, or suspicious calcifications. Stable examination. BI/SCRN MAMM (CAD)W/SIENNA BILAT IMPRESSION: BI-RADS 2: BENIGN. RECOMMEND ANNUAL MAMMOGRAPHIC SCREENING. Follow-up code: Routine Follow-up The patient will be notified of the results by letter. Reading Location: [place] [address]
== END | disposition home or self-care (01) ==
LOC: OPBI 15:27
PROVIDERS: PCP Internal Medicine; Referring Provider Obstetrics & Gynecology; Visit Provider Obstetrics & Gynecology
DX: Z12.31 Encounter for screening mammogram for malignant neoplasm of breast (principal)
CPT/HCPCS: 77063; 77067

== ENCOUNTER → 2024-05-14 | Outpatient (CLI) | payer OTHER, SELFPAY ==
[2024-05-14 12:22] LABS: Absolute Lymphocyte Count 1.69 X10^3/uL (0.83-4.51); Absolute Neutrophil Count 5.2 X10^3/uL (2.0-7.7); Basophil# 0.05 X10^3/uL; Basophil% 0.6 % (0-1); Eosinophil# 0.27 X10^3/uL; Eosinophils% 3.5 % (0-5); Hematocrit 41.8 % (37-47); Hemoglobin 13.4 g/dL (12.0-15.0); Lymphocyte # 1.69 X10^3/ul (0.83-4.51); Lymphocyte % 21.7 % (19-41); Mean Corp Hgb Conc 32.1 g/dL (32-36); Mean Corpuscular Hgb 29.7 pg (27.0-32.0); Mean Corpuscular Volume 92.7 fL (81-99); Mean Platelet Vol. 9.1 fl (6.2-12.0); Monocyte# 0.51 X10^3/uL; Monocyte% 6.6 % (0-10); NRBC Flagged by Analyzer 0 % (0-5); Neutrophil # 5.24 X10^3/uL (2.7-7.7); Neutrophil % 67.3 % (47-70); Platelet Count 353 K/mm3 (150-450); RBC Distribution Width CV 13.4 % (11.6-14.6); RBC Distribution Width SD 45.7 fl (35.1-43.9); Red Blood Count 4.51 M/mm3 (4.2-5.4); White Blood Count 7.8 K/mm3 (4.4-11.0)
[2024-05-14 13:00] LABS: ALB/GLOB Ratio 0.9 RATIO (0.9-2.4); AST(SGOT) 16 U/L (15-37); Alanine Aminotransfer ALT/SGPT 19 U/L (13-56); Albumin, Serum 3.6 g/dL (3.2-5.0); Alkaline Phosphatase 105 U/L (45-117); Anion Gap 6 (5-15); BUN 12 mg/dL (7-18); BUN/Creat Ratio 15.3 RATIO (10-20); Chloride 107 mmol/L (98-107); Creatinine, Serum 0.78 mg/dL (0.55-1.02); EST Glomerular Filtration Rate 85 mL/min (>60); Est Glom Filt Rate - Afr Amer 103 mL/min (>60); Glucose 90 mg/dL (74-106); Potassium 4.2 mmol/L (3.5-5.1); Protein, Total 7.6 g/dL (6.4-8.2); Sodium Level 140 mmol/L (136-145)
[2024-05-15 14:22] LABS: Vitamin D,25 Hydroxy 25.1 ng/mL
== END | disposition home or self-care (01) ==
LOC: BIMLAB 09:08
PROVIDERS: PCP Internal Medicine; Referring Provider Internal Medicine; Visit Provider Internal Medicine
DX: E03.9 Hypothyroidism, unspecified (principal); F32.A Depression, unspecified; E55.9 Vitamin D deficiency, unspecified
CPT/HCPCS: 36415; 80053; 82306; 84443; 85025

== ENCOUNTER → 2024-07-16 | Outpatient (CLI) | payer OTHER, SELFPAY | END | disposition home or self-care (01) | PROVIDERS: PCP Internal Medicine; Referring Provider Physician Assistant; Visit Provider Physician Assistant | DX: R82.90 Unspecified abnormal findings in urine (principal) | CPT/HCPCS: 87086; 87088 ==